=== PATIENT | female | born 1960 | race Caucasian/White ===

== ENCOUNTER → 2017-07-24 | Outpatient (CLI) | payer OTHER ==
[2017-07-26 15:11] LABS: HPV Genotype 16 Not Detected (NOTDET); HPV Genotype 18 Not Detected (NOTDET)
[2017-08-09 10:22] LABS: HPV High Risk Other Not Detected (NOTDET)
== END ==
LOC: LAB 10:35
PROVIDERS: Nurse Practitioner Family
DX: Z00.00 Encounter for general adult medical examination without abnormal findings (principal)
CPT/HCPCS: 87624; G0145

== ENCOUNTER 2017-09-10 08:23 | Day surgery (SDC) | payer OTHER ==
[~2017-09-10] VITALS: Ht 177.8 cm; Wt 90.7 kg
== END 2017-09-10 22:35 | disposition home or self-care (01) ==
LOC: ORSCMMR 08:23 → ORD 09:30 → ORSCMMR 22:35
PROVIDERS: Internal Medicine Gastroenterology
PROC: 0DBN8ZX Excision of Sigmoid Colon, Via Natural or Artificial Opening Endoscopic, Diagnostic (ICD-10-PCS; principal; 2017-09-10 09:30)
DX: Z12.11 Encounter for screening for malignant neoplasm of colon (principal); K63.5 Polyp of colon
CPT/HCPCS: 88305; J7120